=== PATIENT | male | born 2000 | race Caucasian/White ===

== ENCOUNTER 2019-07-08 20:39 | Emergency (ER) | payer SELFPAY ==
[2019-07-08 20:46] VITALS: BP 157/92; PULSE 90; RESP 20; TEMP 37.2; O2SAT 99
--- NOTE | 2019-07-08 21:16 | PC.NURSE ---
PT SEEN WALKING OUT OF ED AND GETTING INTO CAR AT THIS TIME.
== END 2019-07-08 21:26 | disposition left against medical advice (07) ==
LOC: ANHED 21:24
DX: Z53.21 Procedure and treatment not carried out due to patient leaving prior to being seen by health care provider (principal)
CPT/HCPCS: 99199; A9270

== ENCOUNTER 2021-10-07 10:47 | Outpatient (CLI) | payer OTHER, SELFPAY ==
--- NOTE | ~2021-10-07 | XR_ITS ---
XR knee LT 3V DATE: 10/07/2021 11:15 INDICATION: Lateral left knee pain. Work injury. TECHNIQUE: 3 views COMPARISON: None FINDINGS: No fracture or dislocation or joint effusion. No periosteal reaction or bone destruction. J oint spaces are preserved. No radiopaque intra-articular loose body or chondrocalcinosis. IMPRESSION: Negative Reviewed, dictated and finalized at location B. IMPRESSION: Negative
== END 2021-10-07 10:48 | disposition home or self-care (01) ==
LOC: ANHIMG 10:56
PROVIDERS: PCP Physician Assistant; Visit Provider Physician Assistant
DX: M25.562 Pain in left knee (principal)
CPT/HCPCS: 73562